=== PATIENT | male | born 1940 | race Caucasian/White ===

== ENCOUNTER → 2016-03-22 | Outpatient (CLI) | payer OTHER ==
--- NOTE | 2016-03-22 15:48 | DX ---
Sacrum-Coccyx (Three Views, at 3:02 p.m.) Clinical History: 75-year-old male with a history of prostate cancer but PSA levels which are within normal range and noted to have an indeterminate radiotracer-avid lesion at the sacrococcygeal junctio n and questionably over the left inferior ischium on bone scan earlier today. Comparison Study: Bone scan from earlier today. Findings: There is no osteoblastic lesion observed. There is a rounded lucency with peripheral sclero sis at the S1 sacrum although the scintigraphic findings appear to be caudal to this, and this may re present a "pseudolucency." A second questionable lucency (versus pseudolucency) is seen along the upp er coccyx, just caudal to the sacrococcygeal junction. Consider CT correlation to determine if there is a true osseous abnormality, to be compared with the previous CT scan from [facility] in July 2015. There is 7 mm of L4 anterolisthesis above L5 with degenerative disk space at L3-L4, L4-L5, and L5-S1. There is facet hypertrophy at the lumbosacral junction. The sacral arcuate lines are well-contoured. The ischia are intact, with no lytic or blastic lesion. There is no symphysis pubis or SI joint contreras tasis. Each femoral head is well-seated within its respective acetabulum. Impression: 1. There is no osteoblastic disease corresponding to the areas of increased uptake at the sacrococcyg eal junction and questionably in the inferior left ischial pubis on the recent bone scan. 2. Questionable osteolucencies associated with S1 and at the sacrococcygeal junction (versus osseous superimposition or "pseudolucencies"). Given the indeterminate scintigraphic findings and these conve ntional radiographic findings, repeat CT imaging is recommended to determine whether there are true o sseous abnormalities.
--- NOTE | 2016-03-22 15:48 | NM ---
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 Evaluate for osseous metastatic disease. ICD-10 Diagnostic Codes: C61, C77.2. Radiopharmaceutical: 23.4 mCi of IV technetium 99m MDP. Technique: After the uncomplicated intravenous administration of the radiopharmaceutical, 3 to 4 preethi r delayed anterior and posterior planar images of the axial and appendicular skeleton were obtained. The patient was unable to empty his bladder, and oblique imaging of the pelvis was acquired. Comparison Studies: CT imaging of the chest, abdomen, and pelvis from [facility] d ated August 07, 2015, and a PET/CT scan from [facility] dated May 01, 2015. Findings: There is some degenerative-type uptake associated with the acromioclavicular and glenohume ral joints and the with the right sternoclavicular joint. Physiologic uptake within the kidneys and urinary bladder is noted. The bladder obscures portions of the ischium; however, there is some asymm etric uptake at the level of the sacrococcygeal junction and over the inferior left ischium. The pat ient reportedly denies any trauma, and prior CT imaging in July 2015 does not reveal any osteoblastic metastases in this location. Conventional radiographs obtained today do not reveal any osteoblastic lesion. These findings (given the lack of any preceding trauma) remain suspicious, however. It may b e worthwhile to consider unenhanced CT imaging to review the osseous structures with more confident d etail. Impression: Indeterminate lesions at the sacrococcygeal junction and the inferior left ischium. Con cable lacer CT evaluation for further assessment, as clinically directed. E:DODIE/casimiro
== END ==
LOC: FIMAGING 09:58
PROVIDERS: ATTEND Internal Medicine Hematology & Oncology
DX: C61 Malignant neoplasm of prostate (principal); R93.7 Abnormal findings on diagnostic imaging of other parts of musculoskeletal system
CPT/HCPCS: 72220; 78306; A9503

== ENCOUNTER → 2017-09-07 | Outpatient (CLI) | payer OTHER ==
[~2017-09-07] MED LIST: IOPAMIDOL (ISOVUE-300) 100 ML BTL ONE
== END ==
LOC: FIMAGING 09:51
PROVIDERS: ATTEND Specialist
DX: Z08 Encounter for follow-up examination after completed treatment for malignant neoplasm (principal); C61 Malignant neoplasm of prostate; R93.8 Abnormal findings on diagnostic imaging of other specified body structures
CPT/HCPCS: 74177; 78306; A9503; Q9967

== ENCOUNTER → 2018-08-30 | Outpatient (CLI) | payer OTHER | LOC: FIMAGING 09:02 ==